=== PATIENT | female | born 1980 | race Caucasian/White ===

== ENCOUNTER 2016-06-16 05:53 | Day surgery (SDC) | payer BC ==
[~2016-06-16] VITALS: Ht 177.8 cm; Wt 67.1 kg
[2016-06-16] VITALS (26 sets, daily range): BP systolic 103–147; BP diastolic 59–91; PULSE 61–130; RESP 14–20; TEMP 97–98.5; O2SAT 91–100; Ht 177.8 cm; Wt 67.1 kg
[~2016-06-16 05:53] MED LIST: BUTA1CAP53; FENT1PAT28 TOP; ONDA4TAB4 PO; OXYC1TAB8 PO; VEDO300V INJ; [UNRECOGNIZED DRUG - CODE] PO
[2016-06-16 06:31] LABS: BLOOD, URINE NEGATIVE (NEGATIVE); COLOR,URINE YELLOW (YELLOW); LEUKOCYTE ESTERASE ,URINE NEGATIVE (NEGATIVE); NITRITE,URINE NEGATIVE (NEGATIVE); UROBILINOGEN,URINE 0.2 EU/DL (NORMAL)
[2016-06-16 06:34] LABS: BASOPHILS % (AUTO) 0.3 % (0-2); EOSINOPHILS % (AUTO) 0.6 % (0-4); HCT - HEMATOCRIT 40.5 % (36-46); HGB - HEMOGLOBIN 12.2 GM/DL (12-16); IMMATURE GRANULOCYTE # (AUTO) 0.02 T/MM3 (0.00-0.03); IMMATURE GRANULOCYTE % (AUTO) 0.3 % (0.0-0.5); LYMPHOCYTES # (AUTO) 3.4 T/MM3 (1-4.8); LYMPHOCYTES % (AUTO) 48.2 % (23-45); MEAN CORPUSCULAR HGB 25.9 UUG (26-34); MEAN CORPUSCULAR HGB CONC(MCHC 30.1 GM/DL (31-37); MEAN PLATELET VOLUME 9.9 UM3 (9.4-12.4); MONOCYTES # (AUTO) 0.4 T/MM3 (0-0.8); MONOCYTES % (AUTO) 5.8 % (0-9.0); NEUTROPHILS #(AUTO)-ABSOLUTE 3.2 T/MM3 (1.8-7.7); NEUTROPHILS % (AUTO) 44.8 % (33-66); RED BLOOD COUNT 4.71 M/MM3 (4.00-5.20); WBC - WHITE BLOOD COUNT 7.1 T/MM3 (4.5-11.0)
[2016-06-16] MEDS ORDERED: LIDOCAINE (2%) 100 MG/5 ML PF SYRINGE IV ONE (06:35)
[2016-06-16] MEDS ORDERED: VECURONIUM 10mg/10ml INJECTION IV ONE (06:37)
[2016-06-16] MEDS ORDERED: DEXAMETHASONE 4mg/ml - 1ml INJECTION ONE (06:37)
[2016-06-16] MEDS ORDERED: SALINE FLUSH 10ml SYRINGE ONE ×2 (06:37→07:05)
[2016-06-16] MEDS ORDERED: FENTANYL 250mcg/5ml INJECTION ONE (06:37)
[2016-06-16] MEDS ORDERED: PROPOFOL 200mg 20 ML IV ONE (06:37)
[2016-06-16 06:38] LABS: ALBUMIN 3.9 G/DL (3.5-5.0); ALBUMIN/GLOBULIN RATIO 1.4 RATIO (1.1-2.2); ALKALINE PHOSPHATASE 46 U/L (38-126); ALT (SGPT) 31 U/L (9-52); ANION GAP 10 MEQ/L (5-15); AST (SGOT) 22 U/L (14-36); BUN/CREATININE RATIO 8 RATIO (6-26); CALCIUM 9.2 MG/DL (8.4-10.2); CHLORIDE 103 MEQ/L (98-107); CO2 - CARBON DIOXIDE 31 MEQ/L (22-30); CREATININE 0.8 MG/DL (0.7-1.2); GLOMERULAR FILTRATION RATE 82; GLUCOSE 93 MG/DL (65-110); POTASSIUM 3.4 MEQ/L (3.6-5); SODIUM 144 MEQ/L (134-144); TOTAL PROTEIN 6.7 G/DL (6.3-8.2)
[2016-06-16] MEDS ORDERED: DEXT7.5T5 PO (06:42)
[2016-06-16] MEDS ORDERED: ZOLP10TA2 PO (06:43)
[2016-06-16] MEDS ORDERED: LIDOCAINE 1% (10mg/ml) 2ml SDV INJ ONE (07:00)
--- NOTE | 2016-06-16 07:01 | ANESPREOP ---
Anesthesia Record Date and Time DATE: 06/16/16 TIME: 06:56 Proposed Surgical Procedure ROBOTIC LAPAROSCOPIC HYSTERECTOMY NPO since: 06/15/16 Allergies: Coded Allergies: No Known Drug Allergies (Verified Allergy, Unknown, 06/15/16) Ht/Wt/BMI Height: 5 ' 10.00 " Weight: 65.000 kg BMI: 20.6 kg/m2 Vital Signs Date Time Temp Pulse Resp B/P Pulse Ox O2 Delivery O2 Flow Rate FiO2 06/16/16 06:02 98.5 108 16 132/81 100 Room Air Medications Inpatient Medications Current Medications Medications (Trade) Dose Ordered Sig/Ramesh Start Time Stop Time Status Last Admin Dose Admin Lactated Ringer's (Lactated Ringers) 1,000 ml @ 100 mls/hr Q10H 06/16/16 07:00 Butalb/Acetaminophen/Caffeine (Fioricet 50-300-40 mg Capsule) 1 Each Capsule, 1 CAP PRN, (Reported) Last Taken: on 05/15/16 Dextroamphetamine/Amphetamine (Adderall 7.5 mg Tablet) 7.5 Mg Tablet, 1 TAB PO DAILY, (Reported) Last Taken: on 06/14/16 0900 Fentanyl (Duragesic 100 mcg/hr) 1 Each Patch.td72, 1 PATCH TOP Q72H, (Reported) Last Taken: on 06/15/16 1000 Ondansetron HCl (Zofran) 4 Mg Tablet, 4 MG PO Q8H, (Reported) Last Taken: on 06/02/16 Oxycodone HCl/Acetaminophen (Percocet 5-325 mg Tablet) 5-325 Tablet, 1 TAB PO Q4H PRN for PAIN, (Reported) Take 1 tablet, by mouth, every 4 hours as needed for pain. Last Taken: on 06/16/16 0000 Prednisone (Pp-Prednisone 20 Mg Tablets (Pp)) 20 Mg Tablet, 40 MG PO WB Last Taken: on 06/15/16 0900 Vedolizumab (Entyvio) 300 Mg Vial, 1 DOSE INJ, (Reported) Last Taken: on 06/01/16 Zolpidem Tartrate (Ambien) 10 Mg Tablet, 10 MG PO HS , (Reported) Take 1 tablet, by mouth, 1 time a day (at BEDTIME). Last Taken: on 06/12/16 Currently on Beta Jim: No Medical/Surgical History Anesthesia PMH: Reports: Other (Crohn's; bowel resection) Smoking Status: Never smoker HX of Last Menstrual Period: 2016 Past Surgical History Orthopedic Surgeries: No Abdominal Surgeries: Yes - bowel resection 2006, appy 2005 Genitourinary Surgeries: No Cardiac Surgeries: No Endocrine Surgeries: No Reproductive Surgeries: Yes - X3 Neurological Surgeries: No Ear Surgeries: No Nose Surgeries: No Throat Surgeries: Yes - [place] teeth removal, in high school Other Surgeries: Yes - 2009,2010 rectal fissure repairs,COLONOSCOPY Anesthesia Adverse Reactions: FOUND nausea and vomiting Family Hx of Anesthesia Advers: none Pertinent Findings Laboratory Tests 06/16/16 06:19 Test 06/16/16 06:19 Human Chorionic Gonadotropin, Qual Negative (NEGATIVE) EKG Rhythm: Sinus Rhythm Physical Exam Respiratory: Bilat breath sounds equal, Lungs clear Cardiovascular: FOUND Regular rate, rhythm Airway Assessment Mallampati Score: I TMD: 3 Fingerbreadths Neck Extension: Good Teeth: Other (permanent wire-lower teeth) Overall Assessment: No Airway Concerns ASA: 2 Plan Anesthesia Plan: GETA Discussion Discussed risks/options/alternatives of anesthesia and questions answered. Patient consents. Nursing pain assessment noted. Attestation Statement Prior to the delivery of any anesthetic medication, I examined the patient, developed the plan, obtained the patient's consent and discussed the risk and benefits of the procedure with the patient/guardian. FLOR CRAWFORD Jun 16, 2016 06:59
[2016-06-16] MEDS ORDERED: SUFENTANIL 50 MCG/ML VIAL ONE (07:05)
[2016-06-16] MEDS: LR 1,000 ML IV SCH ×2 (07:16→11:29)
[2016-06-16] MEDS ORDERED: LACRI-LUBE EYE OINT 3.5 G TUBE ONE (07:25)
[2016-06-16] MEDS ORDERED: BUPIVACAINE 0.25% (2.5mg/ml) INJ 30ml SDV ONE (07:28)
[2016-06-16] MEDS ORDERED: MIDAZOLAM 2mg/2ml INJECTION IV ONE (07:30)
[2016-06-16] MEDS ORDERED: CEFAZOLIN 1 GRAM INJECTION IV ONE (08:00)
[2016-06-16] MEDS ORDERED: HYDROMORPHONE 2mg/ml INJECTION ONE ×2 (08:55→09:35)
[2016-06-16] MEDS ORDERED: ONDANSETRON 4mg/2ml INJECTION ONE (09:18)
[2016-06-16] MEDS ORDERED: SUGAMMADEX 200 MG/2 ML INJECTION IV ONE (09:32)
[2016-06-16] MEDS ORDERED: ONDANSETRON 4mg/2ml INJECTION IV PRN ×2 (09:45)
[2016-06-16] MEDS ORDERED: HYDROMORPHONE 2mg/ml INJECTION IV PRN (09:45)
[2016-06-16] MEDS ORDERED: METOCLOPRAMIDE 10mg/2ml INJECTION IV PRN (09:45)
[2016-06-16] MEDS ORDERED: MORPHINE SULFATE 4 MG SYRINGE IV PRN (09:45)
[2016-06-16] MEDS ORDERED: FENTANYL 100mcg/2ml INJECTION IV PRN (09:45)
[2016-06-16] MEDS ORDERED: IBUPROFEN 800 MG TABLET PO PRN (09:45)
--- NOTE | 2016-06-16 09:45 | GYNOPNOTE1 ---
VIDEO CONTROL OPERATOR Postoperative Note Date of Operation: 06/16/16 Preoperative Diagnosis: Menorrhagia, Dysmenorrhea Postoperative Diagnosis: Same as Preoperative Hysterectomy: RALH Bilateral Salpingectomy Surgeon: Tosin Buchanan MD Anesthesia Provider: Manuel Mason CRNA Anesthesia Type: general Comments EBL 25cc TOSIN BUCHANAN MD Jun 16, 2016 09:45
[2016-06-16] MEDS ORDERED: KETOROLAC 30mg/ml INJECTION ONE (09:48)
[2016-06-16] MEDS ORDERED: ROPIVACAINE 0.2% (2mg/ml) 20ml INJ INJ ONE (10:07)
[2016-06-16] MEDS ORDERED: SCOPOLAMINE 1.5 MG PATCH TD ONE (10:15)
--- NOTE | 2016-06-16 10:49 | ANESPD ---
Peripheral Nerve Blockade Physician: Tosin Root MD Date: 06/16/16 Surgical Procedure: robotic hysterectomy Discussion Discussed risks/options/alternatives of anesthesia and questions answered. Patient consents. Nursing pain assessment noted. Block Start: 10:24 (time out) Block Stop: 10:42 Block Employed: TAP Block, Single Injection Indication: post-operative pain Approach: bilateral sides confirmed Position: supine Patient: Consent, risks/benefits discussed, Informed, post block act. discussed Monitors: EKG, SpO2, NIBP Sedation: sedate w/meaningful contact (post op) Initial Vital Signs First Documented Vital Signs Date Time Temp Pulse Resp B/P Pulse Ox O2 Delivery O2 Flow Rate FiO2 06/16/16 06:02 16 06/16/16 06:02 98.5 108 132/81 100 Room Air Post Vital Signs Vital Signs Date Time Temp Pulse Resp B/P Pulse Ox O2 Delivery O2 Flow Rate FiO2 06/16/16 09:56 97.9 130 20 139/82 95 Room Air Initial Pain Score: 9 Prep: chlorhexadine/ETOH, sterile technique Ultrasound Used?: Yes Nerve Simulator Needle Depth: 2 Muscle Response: No Parathesia/Pain: none Injectate Ropivacaine (%): 0.2 Ropivacaine (mL): 25 (bilateral side. total volume of 50 ml) Was Epi 1:200,000 Used?: No Injection Injection made incrementally with constant monitoring and aspiration every [5] ml. ANTWON GILLETTE CRNA Jun 16, 2016 10:49
--- NOTE | 2016-06-16 10:50 | ANESPO ---
Post-Op Note Date 06/16/16 Time: 10:49 Status Pt Participated in Evaluation: Pt participated in person Vital Signs Date Time Temp Pulse Resp B/P Pulse Ox O2 Delivery O2 Flow Rate FiO2 06/16/16 10:40 104 20 129/77 100 Room Air 06/16/16 09:56 97.9 Respiratory Function: Airway patent, Regular respirations Cardiovascular Function: Regular pulse Mental Status: Alert/oriented Pain Level Intensity: 5 Hydration: IV infusing Complications during Recovery None apparent Follow-Up Instructions Instructions Per Surgeon ANTWON GILLETTE CRNA Jun 16, 2016 10:50
--- NOTE | 2016-06-16 11:15 | NUR ---
Transfer Patient received from PACU s/p robotic lap hysterectomy. Patient sleepy, but arousable, oriented. Oriented to room and routine. States pain 5/10 in lower abdomen. 4 incisions covered with bandaids with small amount serosanguineous drainage. Marked. Lung sounds clear, bowel sounds present. at bedside.
[2016-06-16] MEDS: HYDROMORPHONE 2mg/ml INJECTION IV PRN ×3 (11:29→23:36)
--- NOTE | 2016-06-16 11:30 | NUR ---
Pain Patient requesting dilaudid for abdominal pain of 5/10. 1 mg IV provided as well as warm pack for abdomen
--- NOTE | 2016-06-16 13:45 | OPNOTEF ---
DATE OF OPERATION 06/16/2016 PREOPERATIVE DIAGNOSES 1. Menorrhagia. 2. Dysmenorrhea. POSTOPERATIVE DIAGNOSES 1. Menorrhagia. 2. Dysmenorrhea. PROCEDURE Robotic-assisted laparoscopic hysterectomy with bilateral salpingectomy. SURGEON Tosin Root MD ANESTHESIA General endotracheal - Manuel Isabella, SAL[employer] DEVELOPER EBL 25 ml OPERATIVE FINDINGS Normal-appearing uterus, tubes and ovaries with mottled appearance of the uterus and large veins in the bilateral broad ligaments, a filmy adhesion between omentum and upper right quadrant. Normal liver edge. Normal gallbladder. DESCRIPTION OF PROCEDURE Ms. Mccormack was brought to the OR and placed on the OR table in a comfortable supine position. She was given general anesthesia and intubated without difficulty. She was then placed in the standard lithotomy position and I performed a bimanual exam. The abdomen, perineum and vagina were prepped and draped in the usual sterile fashion. The cervix was visualized with a freeway speculum. It was grasped with a single-tooth tenaculum. Simple ligatures of 2-0 Vicryl were placed through the cervix at the 3 and 9 o'clock positions. The uterus was then sounded to a depth of 10 cm. The cervix was serially dilated until the larger of the VCare uterine manipulators could be inserted. This was done and the bulb inflated with air. The cup of the manipulator was secured tightly to the cervicovaginal angle with the sutures and we removed our other instruments. We placed a Osullivan catheter to dependent drain and placed the patient in low lithotomy position. I then re-gloved. The supraumbilical region was infiltrated with Marcaine. A 12 mm incision was made with a sharp knife. Tenting up the abdomen, the Veress needle was inserted through the incision. The abdomen was insufflated with CO2 until pressures of 12-15 mmHg were obtained. We removed the Veress needle. Again tenting up the abdomen, we placed a 12-mm trocar through the incision and left the sheath in place for the 0-degree laparoscope. After placement of this, we explored the abdomen and pelvis with findings as described above. We then placed three other operative ports, one on the patient's right side, one on the left and one in left upper quadrant. The left upper quadrant one was for use by the audiology assistant and the others were all for robotic instruments. We made the incisions in the following fashion. The area was transilluminated. It was infiltrated with dilute Marcaine and incision was made and a trocar was placed under direct visualization. We then placed the patient in steep Trendelenburg and gently swept the bowel clear of the pelvis. The ureters were remarkably easy to see bilaterally, coursing well below our area of operation. The left fallopian tube was grasped and elevated. Monopolar cautery was used to cut across the mesosalpinx to the site of the previous tubal ligation. It was then excised and removed by the audiology assistant through the portal. All specimens were sent together subsequently. We then grasped the round ligament on the left, cauterized it thoroughly with bipolar fenestrated cautery and then cut through the tissue using monopolar scissors. Please note that this was the method used to transect tissue throughout the procedure unless otherwise described. We then cut through the utero-ovarian ligament on the left in the same fashion and with the mesosalpinx down to the level of the round ligament on the left. Anteriorly, the vesicouterine fold of peritoneum was remarkably clear of adhesions. It was tented up and incised from its midpoint with monopolar cautery transversely to the round ligament on the left. We then bluntly dissected it to just below the cervicovaginal angle. We could easily see the imprint made by the cuff where the cervicovaginal angle was throughout the procedure. I then used cautery and scissors to cauterize the broad ligament large veins and the uterine vessels on the left. After making sure these had maintained good hemostasis, we turned our attention to the right half of the hysterectomy. We then performed that in the same fashion exactly as we had on the left. Again, we made sure hemostasis was under good control. I then further bluntly dissected the bladder. It was well below the cervicovaginal angle. We then used the sharp cut feature of monopolar cautery to enter the vaginal mucosa cutting circumferentially around the cervix. The cervix, uterus and fallopian tube stumps were then removed through the vagina by the audiology assistant. After restoring our pneumoperitoneum, we inspected carefully for hemostasis. There were three small areas of bleeding along the posterior cuff that were easily controlled with monopolar cautery. The scissors were then removed and a needle chassis driver was passed in along with a 2-0 Covidien barbed suture. I closed the vaginal cuff in a running nonlocking fashion making sure to secure the mucosa throughout and make sure the uterosacral ligaments were secured for support of the cuff. I doubled back for a two-layer closure, then cut the suture off at the level of the tissue. The needle and remnant of stitch were then removed by the audiology assistant. We irrigated copiously with sterile normal saline and suctioned that out. Hemostasis was under good control. We filled the bladder completely full with sterile saline. There was no evidence of intrusion on the bladder, no evidence of leakage of fluid. The lower edge of the bladder was clear of our suture line without difficulty. We then drained the bladder and dropped the pneumoperitoneum as low as it would go. With minimal pressure, hemostasis was maintained throughout. We then removed our instruments. While I re-gowned and gloved, the assistants undocked the robot. After I was back at bedside, we reinspected the vaginal cuff. It remained hemostatic. We then took the patient out of Trendelenburg and removed our operative ports. We used the AirSeal device to completely remove gas from the abdomen, then removed that port. I took care not to touch the camera to any tissue throughout the procedure and then removed it and its port at the end. The supraumbilical incision was reapproximated then at its fascia with a simple ligature of 2-0 Vicryl. Then all the incisions were reapproximated in subcuticular style with a 3-0 undyed Vicryl. The wounds were dressed with Steri-Strips and sterile dressings. Counts were correct postoperatively x 2. The urine remained clear and free flowing throughout the procedure. I then reinspected the vaginal cuff. It was hemostatic. I palpated it. It was intact. We then removed the patient's Osullivan catheter and returned her to the supine position. She was brought up from under anesthesia, extubated and transferred to recovery in stable condition. LOKI
[2016-06-16] MEDS: DICLOFENAC 1.3% TOP PRN (14:22)
[2016-06-16] MEDS ORDERED: [UNRECOGNIZED DRUG - REMARK] TOP PRN (14:30)
--- NOTE | 2016-06-16 18:49 | NUR ---
END OF SHIFT REPORT PATIENT A/OX3. ROOM AIR. VITAL SIGNS STABLE. AFEBRILE. PT UP WITH ASSIST X1. PT WAS NAUSEOUS AT TRANSFER TO FLOOR. THIS WAS CONTROLLED WITH IV REGLAN. PAIN HAS BEEN CONTROLLED WITH PRN PERCOCET. ADEQUATE URINARY OUTPUT. PT HAS MET SURGICAL DISCHARGE CRITERIA. WILL CONTINUE TO MONITOR.
[2016-06-17 03:11] VITALS: BP 116/64; PULSE 72; RESP 16; TEMP 97.2; O2SAT 99
[2016-06-17] MEDS: HYDROMORPHONE 2mg/ml INJECTION IV PRN (03:50)
[2016-06-17] MEDS: LR 1,000 ML IV SCH (03:51)
[2016-06-17] MEDS: DICLOFENAC 1.3% TOP PRN (04:56)
[2016-06-17 07:02] VITALS: BP 98/58; PULSE 69; RESP 16; TEMP 96.9; O2SAT 97
--- NOTE | 2016-06-17 07:40 | NUR ---
PT had pain overnight but pain medications decreased pain. PT a/ox3, follows commands. PT up with staff at bedside throughout night. PT voided on her own. PT LCTAB.
[2016-06-17 08:50] VITALS: PULSE 69; RESP 16
[2016-06-17] MEDS ORDERED: DICL30AD TOP (08:55)
--- NOTE | 2016-06-17 11:03 | NUR ---
CM CM IN TO VISIT WITH PT. SHE IS ALERT AND ORIENTED. SHE PLANS TO DC HOME. SHE DENIES DC NEEDS. HER LACE SCORE IS 1. SHE IS GIVEN CM CONTACT INFORMATION. Addendum: 06/17/16 at 1104 by HARDIK EVANGELISTA RN Amended: Links added.
--- NOTE | 2016-06-17 11:03 | NUR ---
DISCHARGE NURSING NOTE PT WAS DISCHARGED FROM THE HOSPITAL AT THIS TIME, VIA WHEELCHAIR THROUGH THE MAIN HOSPITAL ENTRANCE. THE PT IS ALERT AND ORIENTED X3, VITAL SIGNS STABLE, ON RA. THIS RN WENT OVER DISCHARGE PAPERWORK WITH THE PT, INCLUDING DISCHARGE DIET, ACTIVITY, MEDICATIONS, SCRIPTS, FOLLOW-UP APPOINTMENT, AND INCISION CARE. PT VERBALIZED UNDERSTANDING AND IS INSTRUCTED TO CALL DR. BUCHANAN OFFICE WITH ANY QUESTIONS OR CONCERNS. PT'S IV SITE WAS DISCONTINUED AND ALL BELONGINGS WERE SENT WITH PT. NO CONCERNS NOTED AT TIME OF DISCHARGE.
[2016-06-19] MEDS ORDERED: SCOPOLAMINE PATCH REMOVAL TD SCH (10:15)
== END 2016-06-17 11:03 | disposition home or self-care (01) ==
LOC: SCU 05:53 → SRG 05:54 → SCU 06-17 11:03
PROVIDERS: ATTEND Obstetrics & Gynecology
DX: N92.0 Excessive and frequent menstruation with regular cycle (principal); N94.6 Dysmenorrhea, unspecified; N72 Inflammatory disease of cervix uteri; K50.90 Crohn's disease, unspecified, without complications; Z79.899 Other long term (current) drug therapy; Z90.49 Acquired absence of other specified parts of digestive tract; Z86.19 Personal history of other infectious and parasitic diseases
CPT/HCPCS: 36415; 58552; 76942; 80053; 81003; 84703; 85025; 86850; 86900; 86901; J0690; J1100; J1170; J1885; J2405; J2704; J2765; J2795; J2930; J3010; J7030; J7120; S0020; S2900

== ENCOUNTER 2016-10-20 16:33 | Inpatient (IN) ==
--- OUTSIDE RECORDS SUMMARY | 2016-10-20 16:49 | External Medical Summary | Continuity of Care Document ---
:[address] [facility] Allergies Active Description Code Type Severity Reaction Onset Reported/ Identified Relationship Clinical to Patient Status Yes No Known 30874 [id number] N/A N/A Drug 0 Allergies Yes No Known No Drug Unknown N/A 11/16/2012 Drug Known Aller Intolerances Drug gy Intol eranc es Yes No Known No Drug Unknown N/A 10/17/2015 Allergies Known Aller Aller gy gies Medications Medication Packaging Start Date Stop Date Route Dosage Sig Tablet 05/26/2015 ZOFRAN 6 take 1 tablet by ORAL route every 8 hours as needed for nausea Capsule 06/04/2015 FIORICET 6 TAKE 1 - 2 CAPSULE BY ORAL ROUTE EVERY 4 HOURS NEEDED NOT TO EXCEED 6 CAPSULES PER 24HRS Tablet 06/09/2015 NORCO 6 take 1 tablet by oral route every 8 hours as needed for pain Tablet 06/09/2015 AMBIEN 6 take 1 tablet by ORAL route every week at bedtime as needed Capsule 06/17/2015 FIORICET 6 TAKE 1 TO 2 CAPSULES BY MOUTH EVERY 4 HOURS NEEDED NO MORE THAN 6 CAPSULES IN 24 HOURS Tablet 06/23/2015 NORCO 6 take 1 tablet by oral route every 8 hours as needed for pain Package 06/23/2015 PROCTOFOAM-HC 6 apply by Topical route every 3 - 4 days as needed Gram 06/24/2015 PROCTOZONE-HC apply as directed (2-4 x daily as needed) Capsule 06/28/2015 FIORICET 6 TAKE 1 TO 2 CAPSULES BY MOUTH EVERY 4 HOURS NEEDED NO MORE THAN 6 CAPSULES IN 24 HOURS Tablet 07/02/2015 NORCO 6 take 1 tablet by oral route every 8 hours as needed for pain Tablet 07/07/2015 PERCOCET 6 take 1 tablet by ORAL route every 8 hours as needed Tablet 07/08/2015 FERROUS SULFATE 7 take 1 tablet by oral route 2 times every day Tablet 07/13/2015 ZOFRAN 6 TAKE 1 TABLET BY ORAL ROUTE EVERY 8 HOURS NEEDED FOR NAUSEA Tablet 07/22/2015 PERCOCET 6 take 1 tablet by ORAL route every 8 hours as needed Capsule 07/29/2015 FIORICET 6 TAKE 1 TO 2 CAPSULES BY MOUTH EVERY 4 HOURS NEEDED NO MORE THAN 6 CAPSULES IN 24 HOURS Tablet 08/10/2015 PERCOCET 6 take 1 tablet by ORAL route every 8 hours as needed Capsule 08/23/2015 FIORICET 6 take 1 - 2 capsule by oral route every 4 hours as needed not to exceed 6 capsules per 24hrs Tablet 08/23/2015 ZOFRAN 6 take 1 tablet by oral route every 8 hours Tablet 08/27/2015 PERCOCET 6 take 1 - 2 tablet by ORAL route every 4 hours as needed Tablet 08/31/2015 PERCOCET take 1 tablet by ORAL route every 8 hours as needed Tablet 08/31/2015 CYCLOBENZAPRINE HCL 6 take 1 tablet by oral route every 6 hours as needed Capsule 09/07/2015 FIORICET 6 TAKE 1 - 2 CAPSULE BY ORAL ROUTE EVERY 4 HOURS NEEDED NOT TO EXCEED 6 CAPSULES PER 24HRS Tablet 09/07/2015 AMBIEN take 1 tablet by ORAL route every week at bedtime as needed Tablet 09/09/2015 PERCOCET take 1 tablet by ORAL route every 4 hours as needed Tablet 09/16/2015 PERCOCET 7 take 1 tablet by ORAL route every 4 hours as needed Capsule 09/20/2015 FIORICET TAKE 1 - 2 CAPSULE BY ORAL ROUTE EVERY 4 HOURS NEEDED NOT TO EXCEED 6 CAPSULES PER 24HRS Tablet 10/05/2015 LEXAPRO 6 take 1 tablet by oral route every day Tablet 03/02/2016 CYCLOBENZAPRINE HCL 7 take 1 tablet by oral route every 6 hours as needed during MP Tablet 04/18/2016 CYCLOBENZAPRINE HCL TAKE 1 TABLET BY ORAL ROUTE EVERY 6 HOURS NEEDED DURING MP Tablet 06/14/2016 PERCOCET 7 take 1 tablet by ORAL route every 4 hours as needed Problems Date Dx Attending Type Code Diagnosis Diagnosed By Coded 02/22/2015 Tosin Root Z3A.26 26 weeks gestation of L 02/22/2015 Tosin Root O30.001 Twin preg, unsp num L plcnta T amnio sacs, first trimester 04/08/2015 Tosin Root O09.521 Supervision of L elderly multigravida, first trimester 04/08/2015 Tosin Root O30.041 Twin , L dichorionic/diamnioti c, first trimester 04/08/2015 Tosin Root Z3A.13 13 weeks gestation of L 05/06/2015 Tosin Root O30.042 Twin , L dichorionic/diamnioti c, second trimester 05/06/2015 Tosin Root O44.02 Placenta previa L specified as w/o hemor, second trimester 05/06/2015 Tosin Root Z3A.17 17 weeks gestation of L 06/23/2015 Tosin Root O09.522 Supervision of L elderly multigravida, second trimester 06/23/2015 Tosin Root O30.042 Twin , L dichorionic/diamnioti c, second trimester 06/23/2015 Tosin Root Z3A.24 24 weeks gestation of L 07/21/2015 Tosin Root O30.043 Twin , L dichorionic/diamnioti c, third trimester 07/21/2015 Tosin Root Z3A.28 28 weeks gestation of L 08/18/2015 Tosin Root O09.523 Supervision of L elderly multigravida, third trimester 08/18/2015 Tosin Root O30.043 Twin , L dichorionic/diamnioti c, third trimester 08/18/2015 Tosin Root Z3A.32 32 weeks gestation of L 08/23/2015 Tosin Root O12.10 Gestational L proteinuria, unspecified trimester 09/09/2015 Hue Root O14.03 Mild to moderate L pre-eclampsia, third trimester 09/09/2015 IvettHue W O30.043 Twin , L dichorionic/diamnioti c, third trimester 09/09/2015 IvettIsmaHue W Z3A.36 36 weeks gestation of L 09/09/2015 Ivett ALAMO, F O09.523 SUPERVISION OF Hue Rutherford ELDERLY MULTIGRAVIDA, THIRD TRIMEST 09/09/2015 Ivett ALAMO, F O14.13 SEVERE PRE-ECLAMPSIA, Hue L THIRD TRIMESTER 09/09/2015 Ivett ALAMO, A O14.93 UNSPECIFIED Hue Rutherford PRE-ECLAMPSIA, THIRD TRIMESTER 09/09/2015 Ivett ALAMO, F O30.043 TWIN , Hue Rutherford DICHORIONIC/DIAMNIOTI C, THIRD TRIM 09/09/2015 Ivett ALAMO, F O34.21 MATERNAL CARE FOR Hue Rutherford SCAR FROM PREVIOUS DELI 09/09/2015 Ivett ALAMO, F O45.93 PREMATURE SEPARATION Hue Rutherford OF PLACENTA, UNSP, THIRD TRIM 09/09/2015 Ivett ALAMO, F O60.14X0 LABOR THIRD Hue Rutherford TRI W DELIVERY THIRD T 09/09/2015 Ivett ALAMO, F Z30.2 ENCOUNTER FOR Hue Rutherford STERILIZATION 09/09/2015 Ivett ALAMO, F Z37.2 TWINS, BOTH LIVEBORN Hue Rutherford 09/09/2015 Ivett ALAMO, F Z3A.36 36 WEEKS GESTATION OF Hue Rutherford 05/09/2016 Kyler ALAMO, F A41.9 SEPSIS, UNSPECIFIED Antonio D ORGANISM 05/09/2016 Kyler ALAMO, F B96.89 OTH BACTERIAL AGENTS Antonio Herbert THE CAUSE OF DISEASES CLAS 05/09/2016 Kyler ALAMO, F D50.9 IRON DEFICIENCY Antonio D ANEMIA, UNSPECIFIED 05/09/2016 Kyler ALAMO, F D62 ACUTE POSTHEMORRHAGIC Antonio D ANEMIA 05/09/2016 Kyler ALAMO, F F41.9 ANXIETY DISORDER, Antonio D UNSPECIFIED 05/09/2016 Kyler ALAMO, F G47.00 INSOMNIA, UNSPECIFIED Antonio D 05/09/2016 Kyler ALAMO, F K50.90 CROHN'S DISEASE, Antonio D UNSPECIFIED, WITHOUT COMPLICATION 05/09/2016 Kyler ALAMO, F K91.89 OTH POSTPROCEDURAL Antonio D COMPLICATIONS AND DISORDERS OF 05/09/2016 Kyler ALAMO, A R10.9 UNSPECIFIED ABDOMINAL Antonio Herbert PAIN 05/09/2016 Kyler ALAMO, F R65.10 SIRS OF Antonio Herbert NON-INFECTIOUS ORIGIN W/O ACUTE ORGAN DYSF 06/16/2016 Tosin Root W N92.0 Menorrhagia L 06/16/2016 Damon Roota W N94.4 Primary dysmenorrhea L 06/19/2016 Damon Roota W N92.0 Menorrhagia L 06/19/2016 IvettDamon floresa W N94.4 Primary dysmenorrhea L 06/19/2016 IvettTosin flores W N92.0 Menorrhagia L 06/19/2016 Tosin Root W N94.4 Primary dysmenorrhea L Procedures Code Description Performed By Performed On OB US 02/22/2015 29201 < 14 WKS, SINGLE FETUS OB US 02/22/2015 40473 < 14 WKS, ADD'L FETUS No 02/22/2015 65911 Charge Office Visit OB US 04/07/2015 70791 < 14 WKS, SINGLE FETUS OB US 04/07/2015 58745 < 14 WKS, ADD'L FETUS OB 05/05/2015 36217 US, DETAILED, SNGL FETUS OB 05/05/2015 38888 US, DETAILED, ADDL FETUS 06/23/2015 94697 Ultrasnd preg uterus, flwup/repeat 07/21/2015 90926 Ultrasnd preg uterus, flwup/repeat 08/18/2015 18489 Ultrasnd preg uterus, flwup/repeat 08/19/2015 96535 Venpnctr fngr/heel/ear stick routne 08/19/2015 93066 Creatinine clearance test 08/19/2015 92346 UV-assay, transaminase (SGOT) 08/19/2015 37160 UV-assay, transaminase (SGPT) 08/19/2015 79219 Automated hemogram (CBC) 09/09/2015 71769 biophys prfl w/o nstress test Hue Root MD 09/09/2015 [id number] OCCLUSION OF BILATERAL FALLOPIAN TUBES, OPEN APPRO Hue Root MD 09/09/2015 [id number] EXTRACTION OF POC, LOW CERVICAL, OPEN APPROACH [facility] 06/16/2016 02848 w/t/o 250 g or less Encounters ACCT Visit Discharge Status Pt. Type Provider Facility Loc./Unit Complaint No. Date/Time [id number] 05/09/2016 05/13/2016 DIS Inpatient Chávez Ernesto BeaAnna7TS [id number] 17:31:00 16:58:00 [facility] [id number] 10/17/2015 10/17/2015 DIS Emergency Sowmya ALAMO, Ernesto CaryORQUIDEA [id number] 14:55:00 18:07:00 [facility] [id number] 09/09/2015 09/13/2015 DIS Inpatient Ivett Ernesto Cary5WH [id number] 15:07:00 21:59:00 , [facility] H[facility] [id number] 11/16/2012 11/17/2012 DIS Emergency Ekengren Ernesto CaryEDS [id number] 18:27:00 01:20:00 , [facility] Bella [facility] [id number] 11/05/2012 11/05/2012 DIS Outpatient Oleg Ernesto CaryGISSELL [id number] 11:40:00 11:40:00 , [facility] [id number] 09/12/2012 09/12/2012 CAN Outpatient Adrieningrismiko CaryGISSELL [id number] 00:00:00 00:00:00 , [facility] Kayden [facility] [id number] 07/28/2016 07/28/2016 CLS Outpatient Ivett, 14:10:00 23:59:59 Tosin L [id number] 07/04/2016 07/04/2016 CLS Outpatient Ivett, 16:38:00 23:59:59 Tosin L [id number] 06/23/2016 06/23/2016 CLS Outpatient Ivett, 14:10:00 23:59:59 Tosin L [id number] 06/21/2016 06/21/2016 CLS Outpatient Ievtt, 15:16:00 23:59:59 Tosin L [id number] 06/16/2016 06/16/2016 CLS Outpatient Ivett, 10:50:00 23:59:59 Tosin L [id number] 06/14/2016 06/14/2016 CLS Outpatient Ivett, 10:00:00 23:59:59 Tosin L [id number] 06/06/2016 06/06/2016 CLS Outpatient Ivett, 08:07:00 23:59:59 Tosin L [id number] 05/03/2016 05/03/2016 CLS Outpatient Ivett, 10:00:00 23:59:59 Tosin L [id number] 04/18/2016 04/18/2016 CLS Outpatient Ivett, 09:30:00 23:59:59 Tosin L [id number] 03/02/2016 03/02/2016 CLS Outpatient Ivett, 13:41:00 23:59:59 Tosin L [id number] 10/25/2015 10/25/2015 CLS Outpatient Ivett, 17:04:00 23:59:59 Tosin L [id number] 10/21/2015 10/21/2015 CLS Outpatient Ivett, 14:00:00 23:59:59 Tosin L [id number] 10/12/2015 10/12/2015 CLS Outpatient Ivett, 11:53:00 23:59:59 Hue L [id number] 10/05/2015 10/05/2015 CLS Outpatient Moser, 15:10:00 23:59:59 Deysi J [id number] 09/24/2015 09/24/2015 CLS Outpatient Ivett, 15:09:00 23:59:59 Hue L [id number] 09/22/2015 09/22/2015 CLS Outpatient Selvin, 13:50:00 23:59:59 Erasmo S [id number] 09/20/2015 09/20/2015 CLS Outpatient Ivett, 10:41:00 23:59:59 Tosin L [id number] 09/16/2015 09/16/2015 CLS Outpatient Ivett, 09:04:00 23:59:59 Hue L [id number] 09/10/2015 09/10/2015 CLS Outpatient Ivett, 01:20:00 23:59:59 Hue L [id number] 09/10/2015 09/10/2015 CLS Outpatient Sobbing, 00:00:00 23:59:59 Maurisio L [id number] 09/09/2015 09/09/2015 CLS Outpatient Ivett, 11:30:00 23:59:59 Hue L [id number] 09/09/2015 09/09/2015 CLS Outpatient Ivett, 09:30:00 23:59:59 Hue L [id number] 09/07/2015 09/07/2015 CLS Outpatient Ivett, 09:52:00 23:59:59 Hue L [id number] 09/06/2015 09/06/2015 CLS Outpatient Ivett, 15:50:00 23:59:59 Hue L [id number] 09/01/2015 09/01/2015 CLS Outpatient Ivett, 10:45:00 23:59:59 Hue L [id number] 08/31/2015 08/31/2015 CLS Outpatient Ivett, 11:10:00 23:59:59 Tosin L [id number] 08/28/2015 08/28/2015 CLS Outpatient Ivett, 23:03:00 23:59:59 Tosin L [id number] 08/27/2015 08/27/2015 CLS Outpatient Ivett, 08:45:00 23:59:59 Tosin L [id number] 08/25/2015 08/25/2015 CLS Outpatient Ivett, 14:36:00 23:59:59 Tosin L [id number] 08/23/2015 08/23/2015 CLS Outpatient Ivett, 10:00:00 23:59:59 Tosin L [id number] 08/20/2015 08/20/2015 CLS Outpatient Ivett, 13:12:00 23:59:59 Tosin L [id number] 08/19/2015 08/19/2015 CLS Outpatient Ivett, 07:56:00 23:59:59 Tosin L [id number] 08/18/2015 08/18/2015 CLS Outpatient Ivett, 10:45:00 23:59:59 Tosin L [id number] 08/18/2015 08/18/2015 CLS Outpatient Ivett, 09:45:00 23:59:59 Tosin L [id number] 08/10/2015 08/10/2015 CLS Outpatient Ivett, 09:53:00 23:59:59 Tosin L [id number] 08/09/2015 08/09/2015 CLS Outpatient Ivett, 13:19:00 23:59:59 Tosin L [id number] 08/05/2015 08/05/2015 CLS Outpatient Ivett, 08:45:00 23:59:59 Tosin L [id number] 08/04/2015 08/04/2015 CLS Outpatient Ivett, 10:15:00 23:59:59 Tosin L [id number] 07/29/2015 07/29/2015 CLS Outpatient Ivett, 11:42:00 23:59:59 Tosin L [id number] 07/22/2015 07/22/2015 CLS Outpatient Ivett, 08:18:00 23:59:59 Tosin L [id number] 07/21/2015 07/21/2015 CLS Outpatient Ivett, 10:30:00 23:59:59 Tosin L [id number] 07/21/2015 07/21/2015 CLS Outpatient Ivett, 09:45:00 23:59:59 Tosin L [id number] 07/13/2015 07/13/2015 CLS Outpatient Ivett, 16:32:00 23:59:59 Tosin L [id number] 07/08/2015 07/08/2015 CLS Outpatient Ivett, 09:30:00 23:59:59 Tosin L [id number] 07/07/2015 07/07/2015 CLS Outpatient Ivett, 10:20:00 23:59:59 Tosin L [id number] 07/03/2015 07/03/2015 CLS Outpatient Ivett, 09:53:00 23:59:59 Tosin L [id number] 07/02/2015 07/02/2015 CLS Outpatient Ivett, 10:11:00 23:59:59 Tosin L [id number] 06/28/2015 06/28/2015 CLS Outpatient Ivett, 08:45:00 23:59:59 Tosin L [id number] 06/24/2015 06/24/2015 CLS Outpatient Ivett, 16:52:00 23:59:59 Tosin L [id number] 06/23/2015 06/23/2015 CLS Outpatient Ivett, 13:50:00 23:59:59 Tosin L [id number] 06/23/2015 06/23/2015 CLS Outpatient Ivett, 12:45:00 23:59:59 Tosin L [id number] 06/21/2015 06/21/2015 CLS Outpatient Ivett, 10:15:00 23:59:59 Tosin L [id number] 06/17/2015 06/17/2015 CLS Outpatient Ivett, 08:37:00 23:59:59 Tosin L [id number] 06/04/2015 06/04/2015 CLS Outpatient Ivett, 08:26:00 23:59:59 Tosin L [id number] 05/26/2015 05/26/2015 CLS Outpatient Ivett, 09:20:00 23:59:59 Tosin L [id number] 05/18/2015 05/18/2015 CLS Outpatient Ivett, 11:12:00 23:59:59 Tosin L [id number] 05/17/2015 05/17/2015 CLS Outpatient Ivett, 14:16:00 23:59:59 Tosin L [id number] 05/06/2015 05/06/2015 CLS Outpatient Ivett, 08:33:00 23:59:59 Tosin L [id number] 05/05/2015 05/05/2015 CLS Outpatient Ivett, 14:00:00 23:59:59 Tosin L [id number] 05/05/2015 05/05/2015 CLS Outpatient Ivett, 12:45:00 23:59:59 Tosin L [id number] 04/21/2015 04/21/2015 CLS Outpatient Ivett, 11:05:00 23:59:59 Tosin L [id number] 04/07/2015 04/07/2015 CLS Outpatient Ivett, 11:15:00 23:59:59 Tosin L [id number] 04/07/2015 04/07/2015 CLS Outpatient Ievtt, 10:15:00 23:59:59 Tosin L [id number] 03/25/2015 03/25/2015 CLS Outpatient Ivett, 13:13:00 23:59:59 Tosin L [id number] 03/17/2015 03/17/2015 CLS Outpatient Ivett, 16:05:00 23:59:59 Tosin L [id number] 03/17/2015 03/17/2015 CLS Outpatient Ivett, 14:30:00 23:59:59 Tosin L [id number] 03/10/2015 03/10/2015 CLS Outpatient Ivett, 15:38:00 23:59:59 Tosin L [id number] 03/09/2015 03/09/2015 CLS Outpatient Ivett, 13:29:00 23:59:59 Tosin L [id number] 03/08/2015 03/08/2015 CLS Outpatient Ivett, 11:10:00 23:59:59 Tosin L [id number] 03/01/2015 03/01/2015 CLS Outpatient Ivett, 13:37:00 23:59:59 Tosin L [id number] 02/22/2015 02/22/2015 CLS Outpatient Ivett, 09:46:00 23:59:59 Tosin L [id number] 02/22/2015 02/22/2015 CLS Outpatient Ivett, 09:40:00 23:59:59 Tosin L [id number] 02/22/2015 02/22/2015 CLS Outpatient Ivett, 09:15:00 23:59:59 Tosin L [id number] 02/18/2015 02/18/2015 CLS Outpatient Ivett, 09:45:00 23:59:59 Tosin L [id number] 02/15/2015 02/15/2015 CLS Outpatient Ivett, 10:26:00 23:59:59 Tosin L [id number] 02/12/2015 02/12/2015 CLS Outpatient Ivett, 15:12:00 23:59:59 Tosin L [id number] 02/08/2015 02/08/2015 CLS Outpatient Ivett, 15:30:00 23:59:59 Tosin L [id number] 01/31/2015 01/31/2015 CLS Outpatient Ivett, 17:55:00 23:59:59 Toisn L [id number] 01/28/2015 01/28/2015 CLS Outpatient Ivett, 10:32:00 23:59:59 Tosin L [id number] 01/26/2015 01/26/2015 CLS Outpatient Ivett, 12:04:00 23:59:59 Tosin L [id number] 06/23/2015 Document 13:45:16 Registration
[2016-10-20] MEDS ORDERED: PROCHLORPERAZINE 10 MG/2 ML INJECTION IVP ONE (16:53)
[2016-10-20] MEDS ORDERED: KETOROLAC 30 MG/ML INJECTION IVP ONE (16:53)
[2016-10-20] MEDS ORDERED: NS 1,000 ML IV ONE ×2 (16:53→22:22)
--- NOTE | 2016-10-20 16:57 | Emergency Department Report ---
Abdominal Pain HPI - General Chief Complaint: Abdominal Pain Stated Complaint: Migraine,Stomach pains Time Seen by Provider: 10/20/16 16:41 Source: patient Mode of arrival: ambulatory Limitations: no limitations - History of Present Illness HPI narrative: 36yo woman presents to the ER today for evaluation of abdominal pain and a headache. Pt has a h/o Crohn's; current abdominal sx are similar to her normal sx, but worse. Pt takes entyvia for sx control. Pt has had HERNANDEZ in the past, while , but does not normally have HAs. Not today. HERNANDEZ is frontal and post-orbital, throbbing, b/l; has phonophobia and photophobia. Has tried NSAIDs, tylenol, norco, benadryl, and sudafed, all without relief. MD complaint: abdominal pain Onset (ago): hour(s) Consistency: colicky Location: diffuse Severity: severe Severity scale (1-10): 8 Quality: cramping, stabbing Radiation: none Migration to: no migration Relieving factors: rest Exacerbating factors: movement Context: history of similar episodes Associated symptoms: nausea, vomiting, other (headache) Treatments prior to arrival: NSAIDs, prescription analgesics - Related Data Home Medications Medication Instructions Recorded Confirmed Vedolizumab [Entyvio] 1 dose INJ PRN #0 06/15/16 10/20/16 CloNIDine [Catapres] 0.2 mg PO BID 10/20/16 10/20/16 Duloxetine [Cymbalta] 60 mg PO DAILY 10/20/16 10/20/16 LORazepam [Lorazepam] 1 mg PO TID PRN 10/20/16 10/20/16 Oxycodone/APAP 5/325 [Percocet 2 tab PO Q6H PRN 10/20/16 10/20/16 5/325] Previous Rx's Medication Instructions Recorded Oxycodone *Ir* [Roxicodone *Ir*] 15 - 30 mg PO Q4H #30 tab 10/23/16 PredniSONE [Deltasone] 40 mg PO WB #30 tab 10/23/16 Zolpidem Tartrate [Ambien] 5 mg PO HS PRN #10 tab 10/23/16 Allergies Allergy/AdvReac Type Severity Reaction Status Date / Time No Known Allergies Allergy Verified 10/20/16 16:43 Review of Systems All systems: reviewed and negative except as stated Constitutional: Reports: fever, chills Eyes: Reports: eye pain ENT: Reports: ear pain Gastrointestinal: Reports: as per HPI, abdominal pain, nausea, vomiting Neurological: Reports: as per HPI, headache COUNTS INCLUDE 234 BEDS AT THE [facility] Medical History Crohns disease (Chronic Medical) Headache (Chronic Medical) IBS (irritable bowel syndrome) (Chronic Medical) Anemia during (Resolved Medical) Surgical History: 1. Bowel resection: 2006. 2. Appendectomy. 3. x 2 Family History: Family History Father HTN (hypertension) Maternal Grandmother Stroke Heart attack Blood clotting disorder Maternal Grandfather Stroke Melanoma - Social History Smoking status: Never smoker Physical Exam - Limitations Limitations: no limitations - General General appearance: alert, in no apparent distress - Normal Exams: Head:: Normocephalic without trauma Eyes:: Pupils are PERRLA w/ EOMI, No scleral icterus, irritation, or foreign bodies noted ENMT:: No facial trauma, nasal exudates, pharyngeal erythema, or exudates are noted Neck:: Full range of motion, without adenopathy Chest/Respirations:: Clear all weeks, with good airflow, and symmetry bilaterally Cardiovascular:: Regular rate and rhythm, without murmur or gallop, Pulses 2+ all extremities, capillary refill, <2 seconds all extremities Lymphatic:: No lymphadenopathy Musculoskeletal:: No tenderness, or deformity noted, good range of motion, all extremities Integumentary:: No rashes, hives, or bruising noted, hair and nails, without abnormality Neurological:: Patient is alert, and oriented, cranial nerves, motor/sensory/ cerebellar, exams w/o gross deficits, to observation - Abdominal Exam Abdominal exam: Present: soft, tenderness (Diffuse), normal bowel sounds. Absent: distention, guarding, rebound, rigidity, psoas sign, obturator sign, Mcgill's sign, Rovsing's sign, tenderness at McBurney's Point, hernia - Psychiatric Psychiatric exam: Present: anxious, flat affect Course - Consultations Consultation #1: Filiberto Telemed: Will accept pt for further evaluation and treatment. Time: 19:00 Vital Signs Temperature 98.5 F 10/20/16 16:36 Pulse Rate 122 H 10/20/16 16:36 Respiratory Rate 20 10/20/16 16:36 Blood Pressure 182/110 H 10/20/16 16:36 Pulse Oximetry 98 10/20/16 16:36 Temperature 98.5 F 10/20/16 16:36 Pulse Rate 122 H 10/20/16 16:36 Respiratory Rate 20 10/20/16 16:36 Blood Pressure 182/110 H 10/20/16 16:36 Pulse Oximetry 98 10/20/16 16:36 Abdominal Pain - MDM Narrative Medical decision making narrative: Pt with a h/o Crohn's inflammatory colitis; now appears to have recurrence. Pt taking entyvio, but no longer controlling pts sx. Will plan for admission to control flare. Pt voiced understanding of dx, prognosis, and tx. - Differential Diagnosis Differential diagnosis: Likely: abdominal pain, constipation, diverticulitis, gastroenteritis, other (Crohn's), pancreatitis, small bowel obstruction - Medical Records Attestation: I reviewed the patient's medical records. - Lab Data Attestation: I reviewed the patient's lab results. Result diagrams: 10/23/16 03:50 10/23/16 03:50 - Radiology Data Attestation: I reviewed the patient's radiology results. CXR: Marginal opacity in LLL; this is in the same location as pts LLL rhonchi on PE. Concern for PNA vs atelectasis. CT ABD/Pelv: Stomach and bowel: Small bowel wall thickening up to 6 mm right mid central and right lower abdomen with adjacent prominent vascularity and multiple mesenteric nodes (for example coronal series 5, image 15, axial series 3, image 50) suspicious for Crohn disease exacerbation. Air-filled prominent but nondilated proximal small bowel loops left mid-upper abdomen with caliber up to 23 mm. Some air-fluid levels. No gross dilatation or transition point. This could represent mild reactive ileus. Right lower quadrant bowel suture consistent with resection and anastomosis. IMPRESSION: 1. Small bowel wall thickening, prominent vascularity and multiple mesenteric nodes, suspicious for Crohn disease exacerbation, as described above. 2. Air-filled prominent but nondilated proximal small bowel loops left mid- upper abdomen with a few air-fluid levels could represent mild reactive ileus. - EKG Data EKG #1 EKG shows normal: sinus rhythm, axis, intervals, QRS complexes Rate: tachycardia Interpretation: nonspecific ST-T wave changes Disposition Clinical Impression: Crohn's colitis Qualifiers: Digestive disease complication type: unspecified complication Qualified Code(s) : K50.119 - Crohn's disease of large intestine with unspecified complications [place] 02 [place] [facility] Condition: Stable Time of Disposition: 19:00 - Seen By: physician
[2016-10-20] MEDS: SALINE FLUSH 10ml SYRINGE IVF PRN ×4 (17:05→21:30)
[2016-10-20] MEDS ORDERED: IOHEXOL 300mg/ml 100ml INJECTION ONE (17:13)
[2016-10-20] MEDS ORDERED: SALINE FLUSH 10ml SYRINGE ONE (17:14)
[2016-10-20] MEDS ORDERED: NS 100 ML ONE (17:14)
[2016-10-20] MEDS ORDERED: FentaNYL 100 MCG/2 ML INJECTION IVP ONE (17:51)
[2016-10-20] MEDS ORDERED: METHYLPREDNISOLONE SOD SUCC 125mg/2ml INJECTION IVP ONE (18:53)
[2016-10-20] MEDS ORDERED: MORPHINE SULFATE 2 MG SYRINGE IVP ONE (19:11)
[2016-10-20] MEDS ORDERED: NS IV SCH (19:58)
[2016-10-20] MEDS ORDERED: METHYLPREDNISOLONE SOD SUCC IV SCH (19:58)
[2016-10-20 20:01] VITALS: BMI 19.9
[2016-10-20] MEDS: NS 1,000 ML IV SCH (20:22)
[2016-10-20] MEDS: Oxycodone/Acetaminophen 5/325 1 TAB PO PRN (20:33)
[2016-10-20] MEDS: ONDANSETRON 4 MG/2 ML INJECTION IVP PRN (20:33)
--- NOTE | 2016-10-20 20:39 | History & Physical Report ---
<Sp Araujo Marine - Last Filed: 10/20/16 20:35> History of Present Illness Date: 10/20/16 Chief complaint: abdomen pain HPI: This is a 36 y/o female with a history of Chron's disease who had onset of abdomen pain 3 days ago. The patient had ? fever but definately chills and sweats. These symptoms definately felt like an exacerbation of her Chron's disease. The patient presents to the ED and a CT of the abd/pelvis demonstrated bowel wall changes c/w chrons exacerbation. The patient additionally had a headache frontal in nature. She attributed this to a "virus " her dgt brought home to her from school. The patient has had sig abdomen pain diffuse in nature. nausea with emesis for the past 2 days (none today) The patient usually has up to 8 stools a day but has nad only 3 three today. The patient will be admitted for ivf, iv steroids and iv/oral pain medications. Review of Systems Review of systems: frontal headache as noted above, mild photophobia, nasuea with no emesis today. no ear pain, no nasal congestion, no cough, no shortness of breath,no heart palpitations, abdomen pain as noted above. a 10 point ROS otherwise negative except for outlined above. [facility] Patient Stated Medical History Other Cardiology Yes: episode of heart rate in 30's Other GI Yes: crohns Anemia Yes: When with twins. Blood Transfusions Yes Depression Yes: Currently Clinic Medical History Crohns disease (Chronic Medical) Headache (Chronic Medical) IBS (irritable bowel syndrome) (Chronic Medical) Anemia during (Resolved Medical) Surgical History: 1. Bowel resection: 2006. 2. Appendectomy. 3. x 2 Family History: Family History Father HTN (hypertension) Maternal Grandmother Stroke Heart attack Blood clotting disorder Maternal Grandfather Stroke Melanoma - Social History Smoking status: Never smoker Medications Home Medications Medication Instructions Recorded Confirmed Type Vedolizumab [Entyvio] 1 dose INJ PRN #0 06/15/16 10/20/16 History CloNIDine [Catapres] 0.2 mg PO BID 10/20/16 10/20/16 History Duloxetine [Cymbalta] 60 mg PO DAILY 10/20/16 10/20/16 History LORazepam [Lorazepam] 1 mg PO TID PRN 10/20/16 10/20/16 History Oxycodone/APAP 5/325 [Percocet 2 tab PO Q6H PRN 10/20/16 10/20/16 History 5/325] Zolpidem Tartrate [Zolpidem 6.25 mg PO HS 10/20/16 10/20/16 History Tartrate ER] Allergies Allergy/AdvReac Type Severity Reaction Status Date / Time No Known Allergies Allergy Verified 10/20/16 16:43 Exam Vital Signs: Temperature 98.5 F 10/20/16 16:36 Pulse Rate 104 H 10/20/16 18:28 Respiratory Rate 18 10/20/16 18:28 Blood Pressure 118/69 10/20/16 18:28 Pulse Oximetry 99 10/20/16 18:28 Telemetry Rhythm: Sinus Rhythm Height/Weight/BMI: Height 1.78 m Weight 63 kg Body Mass Index 19.9 Comments: well developed wel nourished female thin in appearance in mild distress - Constitutional Present: mild distress, well nourished, well developed, thin, cooperative - Routine HEENT Exam Head: Present: normocephalic, atraumatic Eye: Present: PERRL ENT: Present: mucous membranes dry - Routine Neck Exam Present: supple, full ROM - Routine Respiratory Exam Present: CTA bilaterally - Routine Cardiovascular Exam Present: RRR, no murmur - Routine Abdominal Exam Present: soft (scaphoid, diffuse tender per nurisiong, bowel sounds presnet) - Routine Extremities Exam Present: non tender, full ROM - Routine Back/Spine/Pelvis Exam Back/Spine: Present: full ROM - Routine Skin Exam Present: intact - Routine Neurological Exam Present: oriented X3, CN II-XII intact. Absent: motor deficit - Routine Psychiatric Exam Present: normal affect Results - Labs CBC & Chem 7: 10/20/16 17:05 10/20/16 17:05 Labs: labs reviewed and support above - Imaging and Cardiology CT scan - abdomen Additional comments: ct c/w exacerbation of chrons disease Assessment and Plan (1) Exacerbation of Crohn's disease Current visit: Yes Status: Acute 10/20/16 20:43 patient will be clear diet. ivf, iv pain meds, oral pain meds. is on biologic agents, iv solumedrol with quick taper, repeat labs in in am. ct not c/w any abscess formation (2) Cephalgia Current visit: Yes Status: Acute 10/20/16 20:44 patient typically does not get headaches, will manage with meds and reassess. ct head not indicated at this time. may be a reflection of underlying inflammatory process. DVT Prophylaxis: SCD's GI Prophylaxis: Protonix Resuscitation Status: Full Code Hospital Course Summary Disclaimer: The visit summary below is not to be considered part of the above Progress Note. <ShariElvi Krish - Last Filed: 10/21/16 13:10> History of Present Illness Date: 10/21/16 [facility] Patient Stated Medical History Family History: Family History Father HTN (hypertension) Maternal Grandmother Stroke Heart attack Blood clotting disorder Maternal Grandfather Stroke Melanoma Exam Vital Signs: Temperature 96.9 F 10/21/16 07:28 Pulse Rate 93 10/21/16 07:28 Respiratory Rate 16 10/21/16 07:28 Blood Pressure 114/65 10/21/16 07:28 Pulse Oximetry 97 10/21/16 07:28 Oxygen Delivery Method Room Air Height/Weight/BMI: Height 1.78 m Weight 64.3 kg Body Mass Index 19.9 Results - Labs CBC & Chem 7: 10/21/16 04:29 10/21/16 04:29 Assessment and Plan (1) Exacerbation of Crohn's disease Current visit: Yes Status: Acute (2) Cephalgia Current visit: Yes Status: Acute Assessment and Plan: Dr. Araujo's note reviewed. Patti interviewed and examined. Her mother was present and provided supplemental history. CC: Abdominal pain/diarrhea HPI: Patti is 36-year-old female with a history of Crohn's disease diagnosed in 2006. Symptoms have been controlled in general recently other than goal chronic abdominal discomfort she's experienced for the past year. For 3 days prior to admission she's had escalating abdominal pain which was cramping in nature associated with chills and diaphoresis but no clear fevers. She's had increased diarrhea with up to 8 stools a day and stools immediately after any oral intake. Stools have had mucus and there has been some spotting of blood following bowel movements. She has had increased perirectal pain prompting use of topical anal steroids. She describes associated nausea with emesis for 1-2 days although that has subsided at this time. Additionally she reports having fairly intense frontal and retro-orbital headache with mild blurry vision. She denied URI symptoms or cough. She's had no acute visual symptoms or acute arthritis. GI symptoms are consistent with past Crohn's exacerbations. IV steroids were initiated after CT of the abdomen and pelvis demonstrated thickening of small bowel loops and mild ileus. The patient missed her last dose of Entyvio. PH/SH/FH: agree with that recorded above with additional of history the prior bowel resection consisted of terminal ileum and cecum, patient's had a hysterectomy. She has no history of tobacco, or alcohol use. The patient's primary care physician is Dr. Boo. Dr. Kayden Dejesus is her wastewater treatment plant chemist. The patient is a full code. ROS: 10 point review as recorded by Dr. Araujo. EXAM: General-NAD, alert, fluent speech 96.9, 114/65 HEENT-PERRL, EOMI without nystagmus, conjunctiva clear, sclera anicteric, conjugate gaze, facial structures symmetric, oropharynx clear, and without ulcerations neck supple and without adenopathy Lungs-respirations nonlabored, good airflow, breath sounds clear Cardiac-regular rhythm, S1-S2, low-grade tachycardia Abd-soft, moderate diffuse tenderness to palpation without guarding, bowel sounds present Ext-without edema Skin-without rash or ulcerations Neuro-cranial nerves 3-12 intact, motor tone/power normal, sensation intact to light touch/cold 4 extremities Psych-calm, cooperative DATA: White count 8.0 on admission, hemoglobin 13.3 dropping to 11.7 with hydration overnight, chemistries/liver enzymes unremarkable. Lactic acid 1.7-2.8-2.2 CT of abdomen and pelvis reviewed by myself demonstrating significant thickening of small bowel loops, presence of multiple mesenteric lymph nodes, and changes suggestive of ileus. Chest x-ray also reviewed by myself is unremarkable. A/P: Crohn's disease with acute exacerbation Generalized abdominal pain Nausea/vomiting Headache Generalized anxiety Dehydration Anemia, mild normocytic Plan: Continue IV fluids, IV Solu-Medrol, antiemetics, and pain medications. Tolerating clear liquids well at this point and will add soft very bland foods to determine if can begin advancing diet slowly. Headache improving with treatment for primary disease process and with hydration. Patient has recently tapered off of chronic narcotics using clonidine to assist with withdrawal symptoms and reports that when she misses clonidine she develops increased agitation and palpitations. Continue clonidine at 0.2 mg twice a day, pressure is low normal and may require further fluid support in conjunction with clonidine. Patient does have a history of hypertension associated with but not chronic hypertension. Hospital Course Summary Disclaimer: The visit summary below is not to be considered part of the above Progress Note.
[2016-10-20] MEDS: PANTOPRAZOLE 40 MG INJECTION IVP SCH (21:28)
[2016-10-20] MEDS: ZOLPIDEM 6.25 MG PO SCH (21:44)
[2016-10-21] MEDS: HYDROMORPHONE 2 MG/ML INJECTION IVP PRN ×5 (00:13→18:03)
[2016-10-21] MEDS: METHYLPREDNISOLONE SOD SUCC IV SCH ×2 (00:17→06:22)
[2016-10-21] MEDS: NS IV SCH ×2 (00:17→06:22)
[2016-10-21] MEDS: ONDANSETRON 4 MG/2 ML INJECTION IVP PRN ×3 (04:35→18:03)
[2016-10-21] MEDS: Oxycodone/Acetaminophen 5/325 1 TAB PO PRN ×2 (04:36→10:59)
[2016-10-21] MEDS: LORazepam 1 MG TABLET PO PRN ×2 (06:30→13:13)
[2016-10-21] MEDS: NS 1,000 ML IV SCH ×2 (08:45→19:46)
[2016-10-21] MEDS: SALINE FLUSH 10ml SYRINGE IVF PRN ×3 (08:46→18:02)
[2016-10-21] MEDS: DULOXETINE 60 MG CAPSULE PO SCH (08:46)
[2016-10-21] MEDS: PANTOPRAZOLE 40 MG INJECTION IVP SCH (08:46)
[2016-10-21] MEDS: METHYLPREDNISOLONE SOD SUCC 125mg/2ml INJECTION IVP SCH ×2 (13:13→18:33)
[2016-10-21] MEDS: Oxycodone/Apap 10/325 1 TAB PO PRN ×2 (15:35→20:12)
[2016-10-21] MEDS: ZOLPIDEM 6.25 MG PO SCH (20:11)
[2016-10-22] MEDS: METHYLPREDNISOLONE SOD SUCC 125mg/2ml INJECTION IVP SCH ×4 (00:03→18:29)
[2016-10-22] MEDS: LORazepam 1 MG TABLET PO PRN ×3 (00:03→16:19)
[2016-10-22] MEDS: Oxycodone/Apap 10/325 1 TAB PO PRN ×3 (01:49→11:06)
[2016-10-22] MEDS: ONDANSETRON 4 MG/2 ML INJECTION IVP PRN ×2 (03:52→11:06)
[2016-10-22] MEDS: HYDROMORPHONE 2 MG/ML INJECTION IVP PRN ×2 (03:53→08:58)
[2016-10-22] MEDS: NS 1,000 ML IV SCH ×2 (05:57→17:14)
[2016-10-22] MEDS: DULOXETINE 60 MG CAPSULE PO SCH (08:18)
[2016-10-22] MEDS: PANTOPRAZOLE 40 MG INJECTION IVP SCH (08:19)
--- NOTE | 2016-10-22 09:05 | XRay Report ---
Indication: Abd pain; HERNANDEZ PROCEDURE: XR chest 1V: Encounter: Initial Comparison: May 18, 2013 FINDINGS: The lungs are clear. There is no abnormal airspace opacity, pleural effusion or pneumothorax identified. The heart size, pulmonary vasculature and mediastinum are within normal limits. No significant skeletal abnormality is seen. IMPRESSION: No acute cardiopulmonary abnormality. .
--- NOTE | 2016-10-22 09:05 | CT Scan Report ---
Indication: Abd pain PROCEDURE: CT abdomen pelvis w con: Encounter: Initial Comparison: CT abdomen and pelvis dated November 15, 2015 Technique: Axial CT images were performed through the abdomen and pelvis after the administration of intravenous contrast. Coronal and sagittal two-dimensional reformats. Automated Exposure Control and Iterative Reconstruction dose reducing techniques were utilized. Contrast: Omnipaque 300 89 mL Findings: The lung bases are clear. The liver, gallbladder, spleen, pancreas, adrenal glands and kidneys are normal. No abdominal or pelvic lymphadenopathy. Prior appendectomy. No evidence of a bowel obstruction. There are thick-walled and somewhat inflamed small bowel loops seen within the pelvis and right lower quadrant abdomen. These were inflamed on the comparison study as well. Bone windows are unremarkable. Impression: Small bowel wall thickening and inflammation in the pelvis could represent an area of active Crohn's disease. There is a preliminary report by [facility]. .
[2016-10-22] MEDS: Oxycodone *IR* 5 MG TABLET PO PRN ×4 (14:08→21:59)
--- NOTE | 2016-10-22 17:43 | Progress Note ---
Subjective: Patti reports his abdominal pain is slightly better today than yesterday although she continues to feel gassy and have abdominal pressure. Diarrhea has decreased and she's had only 1 bowel movement prior to my arrival. She reports minimal mucus and blood in stools. She continues to have nausea but has tolerated the full liquid diet and is asking that diet be advanced. She has required frequent doses of oral pain medications and a couple doses of IV Dilaudid overnight in addition to occasional antiemetics. She denied dyspnea or palpitations and has not had recognized fever although feels hot and cold at times. Headache has resolved. Objective Vital signs: Temperature 98.0 F 10/22/16 15:46 Pulse Rate 53 L 10/22/16 15:46 Respiratory Rate 12 10/22/16 15:46 Blood Pressure 148/83 H 10/22/16 15:46 Pulse Oximetry 98 10/22/16 15:46 Oxygen Delivery Method Room Air I/O 4378/unrecorded weight up 1.9 kg from admission EXAM General-NAD, alert HEENT-conjunctiva clear, oropharynx clear Lungs-respirations nonlabored, good airflow, breath sounds clear Cardiac-regular rhythm, S1-S2 Abd-soft, mild generalized tenderness without guarding, diminished bowel sounds Ext-without edema Neuro-moving all extremities well Psych-slightly anxious, flat affect - Height/Weight/BMI: Height 1.78 m Weight 64.9 kg Body Mass Index 19.9 Results - Labs CBC & Chem 7: 10/22/16 03:36 10/22/16 03:36 Labs: Magnesium 2.0, phosphorus 3.5, albumin 3.1 Assessment and Plan (1) Exacerbation of Crohn's disease Current visit: Yes Status: Acute (2) Cephalgia Current visit: Yes Status: Resolved DVT Prophylaxis: SCD's GI Prophylaxis: Protonix Resuscitation Status: Full Code Assessment and Plan: Assessment: Crohn's disease with acute exacerbation Generalized abdominal pain Nausea/vomiting Chronic RLQ abdominal pain Headache, resolved Generalized anxiety Dehydration Anemia, mild normocytic Plan: Discontinue IV fluids as patient taking by mouth liquids well, Continue IV Solu-Medrol overnight after which will convert to oral steroids. Percocet converted to OxyIR with every 3 hours dose interval; decrease frequency of Dilaudid-patient aware that diet cannot be advanced if IV narcotics are needed. Advance to bland diet when pain adequately controlled with oral medications. Continue clonidine for anxiety associated with recent withdrawal from long- acting narcotics. Blood pressure stable. Continue usual medication for generalized anxiety/depression. High-risk medications in use, supplemental history provided by nursing, laboratory data reviewed. Sepsis Assessment - Evaluation Sepsis screening result: No Definite Risk Hospital Course Summary Disclaimer: The visit summary below is not to be considered part of the above Progress Note. Hospital Course: 10/20-10/21/16 Admitted with Crohn's exacerbation. Treatment initiated with IV fluids, IV Solu- Medrol, antiemetics, and pain medications. Tolerating clear liquids well at this point and will add soft very bland foods to determine if can begin advancing diet slowly. Headache improving with treatment for primary disease process and with hydration. Patient has recently tapered off of chronic narcotics using clonidine to assist with withdrawal symptoms and reports that when she misses clonidine she develops increased agitation and palpitations. Continue clonidine at 0.2 mg twice a day, pressure is low normal and may require further fluid support in conjunction with clonidine. Patient does have a history of hypertension associated with but not chronic hypertension. 10/22/16 17:53 Discontinue IV fluids as patient taking by mouth liquids well, Continue IV Solu-Medrol overnight after which will convert to oral steroids. Percocet converted to OxyIR with every 3 hours dose interval; decrease frequency of Dilaudid-patient aware that diet cannot be advanced if IV narcotics are needed. Advance to bland diet when pain adequately controlled with oral medications. Continue clonidine for anxiety associated with recent withdrawal from long- acting narcotics. Blood pressure stable. Continue usual medication for generalized anxiety/depression.
[2016-10-22] MEDS ORDERED: HYDROMORPHONE 2 MG/ML INJECTION IVP PRN (17:52)
[2016-10-22] MEDS: OMEPRAZOLE 20 MG CAPSULE PO SCH (18:24)
[2016-10-22] MEDS: PredniSONE 20 MG TABLET PO SCH (18:24)
[2016-10-22] MEDS: ZOLPIDEM 6.25 MG PO SCH (21:02)
[2016-10-22] MEDS: SALINE FLUSH 10ml SYRINGE IVF PRN (21:02)
[2016-10-23] MEDS: LORazepam 1 MG TABLET PO PRN ×3 (00:56→17:59)
[2016-10-23] MEDS: Oxycodone *IR* 5 MG TABLET PO PRN ×6 (00:56→18:40)
[2016-10-23] MEDS: METHYLPREDNISOLONE SOD SUCC 125mg/2ml INJECTION IVP SCH (00:57)
[2016-10-23] MEDS: OMEPRAZOLE 20 MG CAPSULE PO SCH (06:23)
[2016-10-23] MEDS: DULOXETINE 60 MG CAPSULE PO SCH (08:03)
[2016-10-23] MEDS: PredniSONE 20 MG TABLET PO SCH (08:03)
[2016-10-23 15:17] VITALS: BP 128/77; PULSE 73; RESP 12; TEMP 97.7; O2SAT 99
--- NOTE | 2016-10-23 19:25 | Discharge Instructions ---
Discharge Plan - Med Rec/Dispo Referrals/Follow Up: Beena Vieyra MD [Physician] - (Later this week as scheduled) Kayden Dejesus MD [Physician] - 1 Day Noe Boo MD [Family Provider] - (Later this week if possible) Prescriptions: New Oxycodone *Ir* [Roxicodone *Ir*] 15 - 30 mg PO Q4H #30 tab PredniSONE [Deltasone] 40 mg PO WB #30 tab Zolpidem Tartrate [Ambien] 5 mg PO HS PRN #10 tab PRN Reason: Insomnia Continue Vedolizumab [Entyvio] 1 dose INJ PRN #0 LORazepam [Lorazepam] 1 mg PO TID PRN PRN Reason: Prn Orders Oxycodone/APAP 5/325 [Percocet 5/325] 2 tab PO Q6H PRN PRN Reason: Pain CloNIDine [Catapres] 0.2 mg PO BID Duloxetine [Cymbalta] 60 mg PO DAILY Discontinued Zolpidem Tartrate [Zolpidem Tartrate ER] 6.25 mg PO HS Discharge Instructions/Outpatient Orders: Final Provider Discharge Instructions Location: Determined By Patient - Disposition 01 Discharged Home, Self-Care
--- NOTE | 2016-10-23 20:15 | Neuropsychiatric Consult ---
[facility] HPI Date: 10/23/16 Requesting Physician: Elvi Mccarthy Reason for Consultation: Depression Start Time: 18:30 Stop Time: 19:00 History of Present Illness: HPI: 36 Y?O CF with a hx of anxiety and depression here for exacerbation of Crohn's. Pt states she has been dealing with increasing depression over the last year. She denies any S/I. STRESSORS: Crohn's disease. PSYCH ROS: Pt reports feeling depressed with anhedonia, low interest and motivation, difficulty falling asnd staying asleep, feelings of guilt and morbid thoughts that life is not worth living at times but denies S/I. She states her family and her nicole are protective factors. She reports having high anxiety at times. She denies wayne or psychosis. PAST PSYCH: PT reports her first depressive symptoms started about 7 years ago after the of her daughter and she has had depressive symptoms after the of each child. She states more recently she has been more depressed due th her Crohn's. She reports she is currently on Cymbalta and Ativan PRN. She has been on Zoloft in the past. Not sure if the Cymbalta or Ativan is helpful. Denies ever trying to harm herself and has never been in a psychiatric hospital. SUBSTANCE ABUSE: Denies [facility], [facility] Patient Stated Medical History Other Cardiology Yes: episode of heart rate in 30's Other GI Yes: crohns Anemia Yes: When with twins. Blood Transfusions Yes Depression Yes: Currently Clinic Medical History Crohns disease (Chronic Medical) Headache (Chronic Medical) IBS (irritable bowel syndrome) (Chronic Medical) Anemia during (Resolved Medical) Surgical History: 1. Bowel resection: 2006. 2. Appendectomy. 3. x 2 Family History: Family History Father HTN (hypertension) Maternal Grandmother Stroke Heart attack Blood clotting disorder Maternal Grandfather Stroke Melanoma - Social History Smoking status: Never smoker Review of Systems - Psychiatric Psychiatric: Present: abnormal sleep pattern, anhedonia, anxiety, depression Mental Status Exam Vitals: Last Vital Signs Temp 97.7 F 10/23/16 15:15 Pulse 73 10/23/16 15:15 Resp 12 10/23/16 15:15 BP 128/77 10/23/16 15:15 Pulse Ox 99 10/23/16 15:15 Height: 1.78 m Weight: 65.7 kg - Mental Status Exam Muscle Strength/Tone: Normal Dressing: Casual Grooming: Good Attitude: Cooperative Motor Activity: Retardation Eye Contact: Fair Speech: Slowed Volume: Normal Rhythm: Appropriate Rhythm Orientation: Oriented X4 Mood: Depressed Affect: Sad Rate of Thoughts: Appropriate Rate Thought Organization: Organized Associations: Intact Abstract Reasoning: Intact, able to abstract Thought Content: Normal Perception/Psychotic: Perception Normal Fund of Knowledge: Appropriate Memory: Grossly Intact Suicidal Ideation: None Homicidal Ideation: None Insight: Good Judgement: Good Impulse Control: Good - Laboratory Result Diagrams: 10/23/16 03:50 10/23/16 03:50 Laboratory Results - last 24 hr 10/23/16 10/23/16 03:50 03:50 WBC 7.7 RBC 3.60 L Hgb 10.6 L Hct 34.1 L MCV 94.7 MCH 29.4 MCHC 31.1 RDW Std Deviation 45.1 Plt Count 182 MPV 11.3 Immature Gran % (Auto) 0.3 Neut % (Auto) 77.9 H Lymph % (Auto) 17.3 L [place] % (Auto) 4.5 Eos % (Auto) 0.0 Baso % (Auto) 0.0 Neut # 6.0 Lymph # 1.3 [place] # 0.4 Eos # 0.0 Baso # 0.0 Abs Immat Gran (auto) 0.02 Turbidity < 20 Sodium 141 Potassium 4.2 Chloride 103 Carbon Dioxide 31 H Anion Gap 7 BUN 13.0 Creatinine 0.7 GFR Calculation 95 BUN/Creatinine Ratio 19 Glucose 112 H Calculated Osmolality 272 Calcium 8.7 Icterus Index < 2 Specimen Hemolysis < 15 Assessment and Plan (1) Major depressive disorder, recurrent episode with anxious distress Problem details: Moderate Current visit: Yes Status: Acute Continue medical management. Discussed medication options and at this time will continue current meds including Cymbalta, Ativan, and Ambien until pt is seen as an OP. Pt will be seen at [facility] and can schedule with this freelance writer as an Op as early as this Sunday afternoon at [facility] in [facility]. SW or client can call and schedule appt.
--- NOTE | 2016-10-23 20:23 | Discharge Summary ---
Discharge Information Date of admission: 10/20/16 19:32 Anticipated date of discharge: 10/23/16 Attending Physician: Elvi Mccarthy MD Primary care physician: Noe Boo MD Consults: Beena Vieyra - Discharge Diagnosis Discharge Diagnosis: Crohn's disease with acute exacerbation Generalized abdominal pain Nausea/vomiting Major depression with generalized anxiety Dehydration - Laboratory Labs: On admission (10/20/16) white count was 8.0, hemoglobin 13.3, and platelet count 186K. Electrolytes, liver enzymes, and renal function on admission were unremarkable. Lactic acid was 1.7. 10/23/16 03:50 10/23/16 03:50 - Radiology Radiology: Chest x-ray on admission: No acute cardiopulmonary disease. CT abdomen and pelvis with contrast on admission: The lung bases are clear. The liver, gallbladder, spleen, pancreas, adrenal glands and kidneys are normal. No abdominal or pelvic lymphadenopathy. Prior appendectomy. No evidence of a bowel obstruction. There are thick-walled and somewhat inflamed small bowel loops seen within the pelvis and right lower quadrant abdomen. These were inflamed on the comparison study as well. Bone windows are unremarkable. Impression: Small bowel wall thickening and inflammation in the pelvis could represent an area of active Crohn's disease. History of Present Illness HPI: Patti is 36-year-old female with a history of Crohn's disease diagnosed in 2006. Symptoms have been controlled in general recently other than goal chronic abdominal discomfort she's experienced for the past year. For 3 days prior to admission she's had escalating abdominal pain which was cramping in nature associated with chills and diaphoresis but no clear fevers. She's had increased diarrhea with up to 8 stools a day and stools immediately after any oral intake. Stools have had mucus and there has been some spotting of blood following bowel movements. She has had increased perirectal pain prompting use of topical anal steroids. She describes associated nausea with emesis for 1-2 days although that has subsided at this time. Additionally she reports having fairly intense frontal and retro-orbital headache with mild blurry vision. She denied URI symptoms or cough. She's had no acute visual symptoms or acute arthritis. GI symptoms are consistent with past Crohn's exacerbations. IV steroids were initiated after CT of the abdomen and pelvis demonstrated thickening of small bowel loops and mild ileus. The patient missed her last dose of Entyvio. Hospital Course This is a general summary of the patient's hospital course. For more details refer to the complete medical record. Hospital course: Assessment: Crohn's disease with acute exacerbation Generalized abdominal pain Nausea/vomiting Dehydration, POA Chronic RLQ abdominal pain Headache, resolved Major depression Generalized anxiety Dehydration Anemia, mild normocytic Hospital course: Patti was admitted with exacerbation of Crohn's disease. She was initially treated with IV fluids, IV Solu-Medrol, antiemetics, and IV/oral pain medications. Clear liquids were initiated on admission and diet was advanced over the next 2 days to a bland diet with good tolerance. Headache subsided with hydration. There was minimal rectal bleeding (minor spotting of blood with wiping only) and drop in hemoglobin was felt to reflect presenting dehydration. Frequency of stools decreased progressively such that she had only 2 stools by midday on the date of discharge. Clonidine was continued for anxiety and narcotic withdrawal after recent efforts to decrease use of extended-release narcotics and decrease narcotic use overall. IV fluids were discontinued late in the day on 10/22 and by 10/23 patient had been converted to oral steroids and pain control was adequately managed with oral narcotics. Patti reported increased depressive symptoms in conjunction with ongoing chronic illness and reported inadequate control of symptoms with Cymbalta. She was interested in establishing care with psychiatry and was subsequently seen for initial assessment by Dr. Vieyra and will follow up with him in the near future for medication management. Patient was felt stable for discharge on 10/23. She was tolerating a bland diet and had minimal diarrhea. Abdominal discomfort is significantly improved from admission but not yet at baseline. She's had no nausea in the past 24 hours. On examination patient is alert but has flat affect. Abdomen is soft and nontender there is mild generalized tenderness, greatest in the right lower quadrant. No guarding is present. Patient is asked to follow-up with Dr. Dejesus tomorrow as coordinated by phone by the patient earlier today. Discharge on prednisone 40 mg daily with taper per Dr. Dejesus. Follow-up with Dr. Vieyra late this week. Follow-up with Dr. Boo later this week for reassessment of pain and prescriptions if needed. Medication changes during the hospital course include: -initiation of OxyIR 15-30 mg every 4 hours when necessary for pain -Prednisone 40 mg daily with titration to follow -Conversion from Ambien ER to Ambien 5 mg prn Time spent with patient: discharge greater than 30 minutes Discharge Plan - Med Rec/Dispo Referrals/Follow Up: Kayden Dejesus MD [Physician] - 1 Day (please call and schedule all appointments: ) Beena Vieyra MD [Physician] - (Later this week as scheduled please call and schedule) Noe Boo MD [Family Provider] - (Later this week if possible ; please call and schedule appointment) [place] Instructions: Gastritis (DC) Prescriptions: New Oxycodone *Ir* [Roxicodone *Ir*] 15 - 30 mg PO Q4H #30 tab PredniSONE [Deltasone] 40 mg PO WB #30 tab Zolpidem Tartrate [Ambien] 5 mg PO HS PRN #10 tab PRN Reason: Insomnia Continue Vedolizumab [Entyvio] 1 dose INJ PRN #0 LORazepam [Lorazepam] 1 mg PO TID PRN PRN Reason: Prn Orders Oxycodone/APAP 5/325 [Percocet 5/325] 2 tab PO Q6H PRN PRN Reason: Pain CloNIDine [Catapres] 0.2 mg PO BID Duloxetine [Cymbalta] 60 mg PO DAILY Discontinued Zolpidem Tartrate [Zolpidem Tartrate ER] 6.25 mg PO HS Discharge Instructions/Outpatient Orders: Final Provider Discharge Instructions Location: Determined By Patient - Disposition 01 Discharged Home, Self-Care
== END 2016-10-23 20:10 | disposition home or self-care (01) | DRG 386 ==
LOC: ED 16:33 → MED 19:32
PROVIDERS: ADMIT Emergency Medicine; ATTEND Internal Medicine